=== PATIENT | male | born 1945 | race Caucasian/White ===

== ENCOUNTER 2018-01-22 12:17 | Inpatient (IN) ==
[2018-01-22] MEDS ORDERED: Sodium Chlor 0.9% Inj 250 ML ONE (12:50)
[2018-01-22] MEDS ORDERED: Sodium Chlor 0.9% Inj 500 ML IV.CONT ONE (13:00)
[2018-01-22] MEDS ORDERED: Chlorhexidine Gluconate 2% 1 Pack (2 Cloths) TOPICAL ONE (13:00)
[2018-01-22] MEDS ORDERED: Metoprolol Tartrate 25 MG Tablet PO ONE (13:00)
[2018-01-22] MEDS ORDERED: Chlorhexidine 4% Topical 120 APPLIC/120 ML Bottle TOPICAL SCH (13:15)
[2018-01-22] MEDS ORDERED: ceFAZolin 2 GM Premix Inj 2 GM/50 ML PIGGYBACK IV.SIG SCH (14:00)
[2018-01-22] MEDS ORDERED: Vancomycin Inj 1,000 MG in Sodium Chlor 0.9% Inj 250 ML IV.SIG SCH (14:00)
[2018-01-22] MEDS ORDERED: fentaNYL Citrate Inj 250 MCG/5 ML Ampul ONE (14:31)
[2018-01-22] MEDS ORDERED: fentaNYL Citrate Inj 100 MCG/2 ML Ampul ONE ×4 (14:32→18:24)
[2018-01-22] MEDS ORDERED: Sodium Chlor 0.9% Inj 40 ML, Bupivacaine Liposo PF 1.3% Inj 20 ML P-ARTICULR ONE ×2 (15:41)
[2018-01-22] MEDS ORDERED: SODIUM CHLOR 0.9% IV.SIG ONE ×2 (16:00→20:00)
[2018-01-22] MEDS ORDERED: TRANEXAMIC ACID IV.SIG ONE ×2 (16:00→20:00)
--- NOTE | 2018-01-22 17:03 | P.DCO ---
- Physical Therapy Physical Therapy: Gait training, Transfer training, bed to chair Hip: Total hip, Protocol: Right, Progress to weight bearing Right Lower Extremity Weight Bearing: Weight bearing as tolerated Left Lower Extremity Weight Bearing: Weight bearing as tolerated - Nursing RN: 3 days/week x 2 weeks Dressing changes: Do not change dressing Additional instructions: aspirin 81 mg bid x 4 weeks dvt prop knee high TEDS during the day time - Certification Need for Home Health services: I have seen patient Ramin Lopez on 01/22/18. My clinical findings support the need for the requested home health care services because: Need for Home Health Services: High risk of falls Homebound Certification: I certify that my clinical findings support that this patient is homebound because: Homebound Certification: Post-op weakness
--- NOTE | 2018-01-22 17:42 | P.OP ---
- Preoperative Diagnosis (1) Osteoarthritis of right hip - Postoperative Diagnosis (1) Osteoarthritis of right hip Date of procedure: 01/22/18 Anesthesia: GETA Surgeon: Grant Eden MD [employer] Manager: Richard Eden MD Operation and Findings: EBL: 300 cc INDICATION: This patient is a 73-year-old male with severe osteoarthritis of his right hip. He has had extensive conservative care outlined in the attached records. He presents for surgical treatment. NOTE: Richard Eden was present for the entire surgical procedure as my ice cream freezer assistant. In my medical opinion his skill and care was necessary for the proper management of this patient. COMPONENTS: COMPANY: [employer] CUP: [place], 54 mm, 100 series STEM: [place], size 12, high offset, hydroxyapatite-coated HEAD: Metal, 36 mm, +5, 12/14 taper LINER: Altrex, 36 mm, neutral PROCEDURE: This patient was brought to the operating room and anesthetized in the supine position. The patient was positioned on the [place] table with the operative leg extended and the contralateral leg held in proper position. The hip and leg was scrubbed with alcohol followed by Hibiclens followed by ChloraPrep and draped sterilely in the clean air suite. Preoperative fluoroscopic images were utilized. A templating x-ray was obtained and printed to be used during the case. A timeout was done and antibiotics were given within a routine time window. A 4 inch incision was made starting 2 cm distal and 2 cm lateral to the anterior superior iliac spine. The tensor fascia hailey fascia was identified and opened longitudinally in line with the incision. Deep retraction allowed good visualization in the interval between the tensor fascia hailey and the rectus and this was opened further. The posterior fascia was opened. Crossing vessels were coagulated appropriately. The anterior aspect of the hip capsule was identified. Retractors were placed above and below the capsule. The capsule was opened longitudinally. Stay sutures were utilized creating flaps for the anterior capsule. The femoral neck was cut at the right location and completed with an oscillating saw. The head and neck was removed and taken to the back table. The leg was externally rotated 60 degrees and traction placed on the extremity. The labrum was excised. A portion of the capsule was excised. Visibility was excellent. Retractors were positioned. Starting 6 mm from the final size reamer, we began reaming up to 1 mm from the anticipated size. This was visualized under fluoroscopy. A trial cup was positioned. This also was visualized under fluoroscopy and minor adjustments were made. The final preparation with a 54 reamer was utilized. The final cup was positioned in approximately 40 degrees of abduction and 20 degrees of forward flexion. This is visualized under fluoroscopy and was seated into the final position. Position was very satisfactory. A single hole eliminator was positioned followed by the plastic liner. The final solution was excellent. Traction was let off. The leg was brought into neutral rotation. A lifting took was positioned underneath the greater trochanter and proximal femur. The leg was maximally externally rotated and the foot drop to the floor across midline. Retractors were positioned. A box osteotome was used to gain entrance into the top of the femur. The canal was probed with a finder to ensure that we were within the canal. Successive broaching up to the final stem size was accomplished. Trial reduction showed excellent balancing. Adjustments were made. The wound was irrigated copiously and the canal irrigated. The final stem was inserted in proper orientation. A final trial reduction was performed, and the final head was impacted. The hip was reduced and with 60 degrees of external rotation the leg to be dropped to the floor without evidence of anterior subluxation. Intraoperative x-rays were obtained. Local anesthesia was utilized for a field block including posterior capsule, inferior capsule, cephalad capsule, region of the greater trochanter, tensor fascia hailey and subcutaneous tissue. The anterior capsule was repaired with interrupted #2 Tycron sutures. The fascia was run with 0 PDS on a loop. Subcutaneous tissue was approximated 2-0 Vicryl suture and skin with running intradermal 3-0 Vicryl followed by benzoin and Steri-Strips. A sterile dressing was applied. The patient was awakened and taken to the recovery room in satisfactory condition FINDINGS: There was severe osteoarthritis of the right hip. The final solution was excellent. There was no complication appreciated.
--- NOTE | 2018-01-22 18:00 | XR ---
EXAM DATE: 01/22/2018 5:56 PM EST AGE/SEX: 73 years / Male INDICATIONS: Anterior hip replacement done in the operating room. CLINICAL DATA: This is the patient's initial encounter. Patient reports that signs and symptoms have been present for 1 day and indicates a pain score of Nonresponsive. MEDICAL/SURGICAL HISTORY: Non-responsive. Non-responsive. COMPARISON: No prior exams available for comparison. FINDINGS: There is a right hip prosthesis in place. There is good position and alignment with the bony structur es. The bony structures are grossly intact. CONCLUSION: Good position and alignment on this postoperative study. Electronically signed by: Jethro Green MD Board Certified Radiologist 01/22/2018 5:58 PM EST
[2018-01-22] MEDS ORDERED: Bisacodyl 10 MG Supp RECTAL PRN (18:02)
[2018-01-22] MEDS ORDERED: Post-op Orders (for Pharmacy) OTHER STA (18:02)
[2018-01-22] MEDS ORDERED: Zolpidem Tartrate 5 MG Tablet PO PRN (18:02)
[2018-01-22] MEDS ORDERED: Morphine Inj 4 MG/ML Vial IV.PUSH PRN (18:02)
[2018-01-22] MEDS ORDERED: *Meperidine Inj 25 MG/ML Vial PERIprocedural Use ONLY ONE (18:20)
[2018-01-22] MEDS ORDERED: HYDROmorphone PF Inj 0.5 MG/0.5 ML Syringe ONE (18:43)
[2018-01-22] MEDS: Senna/Docusate Sodium 8.6/50 MG Tablet PO SCH (21:56)
[2018-01-22] MEDS: ceFAZolin 1 GM Premix Inj 1 GM/50 ML PIGGYBACK IV.SIG SCH (21:56)
[2018-01-23] MEDS: ceFAZolin 1 GM Premix Inj 1 GM/50 ML PIGGYBACK IV.SIG SCH ×2 (04:21→10:00)
[2018-01-23 05:19] LABS: Hematocrit 37.8 % (39.0-51.0); Hemoglobin 12.9 gm/dL (13.0-17.0)
--- NOTE | 2018-01-23 06:57 | P.PNOP ---
Subjective Interval history: pt doing well, post operative hip pain states he was not able to sleep much last night Physical Exam Vital signs: Vital Signs 01/22/18 13:00 01/22/18 18:10 01/22/18 18:15 Temperature 99.2 F 98.2 F Pulse Rate 77 76 71 Respiratory Rate 22 14 15 Blood Pressure 153/85 H 140/98 H 146/81 H Pulse Oximetry 97 100 98 01/22/18 18:30 01/22/18 18:45 01/22/18 19:00 Temperature 98.5 F Pulse Rate 72 76 77 Respiratory Rate 15 16 16 Blood Pressure 147/65 H 133/65 133/70 Pulse Oximetry 97 94 L 95 01/22/18 19:15 01/22/18 19:20 01/22/18 21:03 Temperature 98.1 F Pulse Rate 75 79 Respiratory Rate 16 16 Blood Pressure 132/73 151/76 H Pulse Oximetry 95 95 94 L 01/23/18 01:06 01/23/18 04:17 Temperature 98.2 F 98.4 F Pulse Rate 68 71 Respiratory Rate 17 16 Blood Pressure 158/75 H 157/77 H Pulse Oximetry 95 94 L Intake & Output 01/22/18 01/22/18 01/23/18 06:59 18:59 06:59 Intake Total 2510.87 / 2510.87 510.87 / 510.87 Output Total 300 / 300 475 / 475 Balance 2210.87 / 2210.87 35.87 / 35.87 Weight 108.7 kg 105.3 kg Intake: IV 410.87 / 410.87 210.87 / 210.87 NS Inj 250 ML @ 0 mls/hr .ROUTE 250 / 250 .STK-MED ONE Rx#:[id number] Cyklokapron Inj 1,087 MG In NS 110.87 / 110.87 110.87 / 110.87 Inj 100 ML @ 200 mls/hr IV.SIG ONCE ONE Rx#:[id number] Ancef 1 GM Premix Inj 1 gm In 100 / 100 50 ml @ 100 mls/hr IV.SIG Q6H [facility] Rx#:[id number] Ancef 2 GM Premix Inj 2 gm In 50 / 50 50 ml @ 100 mls/hr IV.SIG TAX INVESTIGATOR [facility] Rx#:[id number] Oral 300 / 300 Anesthesia Amount 2099 / 2099 Output: Urine 475 / 475 Stool 0 / 0 Estimated Blood Loss 300 / 300 Other: Date of Last Bowel Movement 01/22/18 Weight On Admission 108.7 kg Narrative: also seen and examined by Dr. Richard Eden right hip dressing dry and intact ice in place +NVI Results - Labs CBC & Chem 7: 01/23/18 04:39 Laboratory Results - last 24 hr 01/22/18 01/23/18 12:45 04:39 Hgb 12.9 L Hct 37.8 L Blood Type O Positive Blood Type Recheck Required Antibody Screen Negative - Imaging Impressions Hip X-Ray 01/22/18 00:00 CONCLUSION: Good position and alignment on this postoperative study. Assessment and Plan - Assessment and Plan POD # 1 s/p R TD- anterior PT-WBAT aspirin 81 mg bid x 4 weeks dvt prop [place] 7.5 mg escribed to pharmacy, eforce verified discharge home today with [facility], orthopedically stable
[2018-01-23] MEDS: Senna/Docusate Sodium 8.6/50 MG Tablet PO SCH (08:39)
[2018-01-23] MEDS ORDERED: Spironolactone 25 MG Tablet PO SCH (09:00)
[2018-01-23] MEDS ORDERED: amLODIPine 10 MG Tablet PO SCH (09:00)
[2018-01-23] MEDS ORDERED: Pantoprazole Sodium 20 MG DR Tablet PO SCH (09:00)
== END 2018-01-23 14:41 | disposition home health service (06) ==
LOC: HSDC 12:17 → EDSTATUS 15:00 → HSDI 19:01 → N06 19:35
PROVIDERS: ADMIT Orthopaedic Surgery Orthopaedic Surgery of the Spine; ATTEND Orthopaedic Surgery Orthopaedic Surgery of the Spine